=== PATIENT | male | born 1995 | race Caucasian/White ===

== ENCOUNTER 2016-12-16 13:26 | Emergency (ER) | payer OTHER ==
[~2016-12-16] VITALS: Ht 185.4 cm; Wt 74.8 kg
[2016-12-16 13:58] VITALS: BP 124/55
[2016-12-16] MEDS ORDERED: NAPROXEN 500 MG TABLET PO STA (14:11)
[2016-12-16] MEDS ORDERED: CYCLOBENZAPRINE 10 MG TABLET. PO ONE (14:30)
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
--- NOTE | 2016-12-16 15:53 | RAD ---
CT CHEST WITHOUT CONTRAST History: Possible xyphoid fx on xray Comparison: Chest radiograph performed earlier the same day Technique: Helical CT of the chest was performed without contrast. Axial and coronal reconstructions were obtained. Findings: The thyroid is symmetric. There is no significant axillary, mediastinal, or hilar adenopathy. The thoracic aorta diameter is normal. The central airways are patent. The cardiac size is normal. Triangular density in the anterior mediastinum likely related to residual thymus tissue given patient's age. There is no pericardial effusion. There is no suspicious pulmonary nodule, focal consolidation, pleural effusion, or pneumothorax. The visualized upper abdomen is unremarkable. No acute osseous abnormality. No displaced sternal or rib fracture. IMPRESSION: 1. No acute intrathoracic abnormality. 2. No acute osseous abnormality. No displaced sternal or rib fracture. Findings on chest radiograph likely were due to summation of shadows. PQRS Compliance Statement: One or more of the following individualized dose reduction techniques were utilized for this examination: 1. Automated exposure control 2. Adjustment of the mA and/or kV according to patient size 3. Use of iterative reconstruction technique
[2016-12-16] MEDS ORDERED: CYCL10TA2 PO (16:20)
[2016-12-16] MEDS ORDERED: NAPR500T8 PO (16:20)
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
== END 2016-12-16 16:30 | disposition home or self-care (01) ==
LOC: ER 13:26
DX: S20.219A Contusion of unspecified front wall of thorax, initial encounter (principal); K52.9 Noninfective gastroenteritis and colitis, unspecified; V43.53XA Car driver injured in collision with pick-up truck in traffic accident, initial encounter; Y93.89 Activity, other specified; Y99.8 Other external cause status; Y92.410 Unspecified street and highway as the place of occurrence of the external cause
CPT/HCPCS: 71020; 71250; 99284-25